=== PATIENT | female | born 1965 | race Caucasian/White ===

== ENCOUNTER 2020-04-30 10:44 | Day surgery (SDC) | payer BC ==
--- NOTE | 2020-04-30 11:11 | EDM.PDOC ---
ED HPI GENERAL MEDICAL PROBLEM - General Chief Complaint: Lower Extremity Injury/Pain Stated Complaint: INJURED LEG Time Seen by Provider: 04/30/20 10:56 Source of Information: Reports: Patient History Limitations: Reports: No Limitations - History of Present Illness INITIAL COMMENTS - FREE TEXT/NARRATIVE: 55 year old female, otherwise healthy, brought by ambulance after a injury from being trampled by a hog this morning. Pt c/o pain to right knee and R leg. Splint intact from ambulance upon arrival. Dilaudid was given while en route. No SOB or distress. . Onset: Today Onset Date: 04/30/20 Onset Time: 10:00 Duration: Hour(s):, Constant Location: Reports: Lower Extremity, Right Quality: Reports: Ache, Sharp, Stabbing, Throbbing Severity: Moderate Improves with: Reports: Immobilization (Currently in full leg splint from ambulance), Medication, Rest Worsens with: Reports: Movement Context: Reports: Trauma Associated Symptoms: Reports: No Other Symptoms Right Knee Pain Score (Numeric/FACES): 5 - Related Data Allergies Allergy/AdvReac Type Severity Reaction Status Date / Time No Known Allergies Allergy Verified 04/30/20 10:49 Home Meds: Home Meds NK [No Known Home Meds] 04/30/20 [History] Past Medical History HEENT History: Reports: Impaired Vision Musculoskeletal History: Reports: Fracture - Past Surgical History Musculoskeletal Surgical History: Reports: Other (See Below) Other Musculoskeletal Surgeries/Procedures:: ankle repair Social & Family History - Tobacco Use Smoking Status *Q: Never Smoker - Caffeine Use Caffeine Use: Reports: Coffee - Recreational Drug Use Recreational Drug Use: No - Living Situation & Occupation Living situation: Reports: with Spouse (Lives in single dwelling home with spouse) Review of Systems - Review of Systems Review Of Systems: See Below Constitutional: Reports: Weakness (Right leg injury ) Eyes: Reports: No Symptoms Ears: Reports: No Symptoms Nose: Reports: No Symptoms Mouth/Throat: Reports: No Symptoms Respiratory: Reports: No Symptoms Cardiovascular: Reports: No Symptoms GI/Abdominal: Reports: No Symptoms Genitourinary: Reports: No Symptoms Musculoskeletal: Reports: Leg Pain, Joint Pain, Joint Swelling, Other (R leg injury ) Skin: Reports: Other (Brusingto R leg from injury) Neurological: Reports: Difficulty Walking (R leg injury) Psychiatric: Reports: No Symptoms ED EXAM, GENERAL - Physical Exam Exam: See Below Exam Limited By: No Limitations General Appearance: Alert, WD/WN, No Apparent Distress, Moderate Distress Eye Exam: Bilateral Eye: Normal Inspection, PERRL Ears: Normal External Exam Ear Exam: Bilateral Ear: Auricle Normal Nose: Normal Inspection, Normal Mucosa, No Blood Throat/Mouth: Normal Inspection, Normal Lips, Normal Teeth, Normal Gums, Normal Voice, No Airway Compromise Head: Atraumatic, Normocephalic Neck: Normal Inspection, Supple, Non-Tender, Full Range of Motion Respiratory/Chest: No Respiratory Distress, Lungs Clear, Normal Breath Sounds, No Accessory Muscle Use, Chest Non-Tender Cardiovascular: Normal Peripheral Pulses, Regular Rate, Rhythm, No Edema, No Gallop, No JVD, No Murmur, No Rub Peripheral Pulses: 2+: Radial (L), Radial (R), Posterior Tibial (L), Posterior Tibial (R), Dorsalis Pedis (L), Dorsalis Pedis (R) GI/Abdominal: Normal Bowel Sounds, Soft, Non-Tender, No Distention, Pelvis Stable (Female) Exam: Deferred Rectal (Female) Exam: Deferred Back Exam: Normal Inspection, Full Range of Motion Extremities: Normal Capillary Refill, Joint Swelling, Limited Range of Motion (R knee/leg ) Neurological: Alert, Oriented, CN II-XII Intact, Normal Cognition, Abnormal Gait (R leg/knee injury) Skin Exam: Warm, Dry, Normal Color, No Rash, Other (scant abrasions to R leg/knee from injury) Lymphatic: No Adenopathy Course - Vital Signs Last Recorded V/S: Last Vital Signs Temp 36.3 C 04/30/20 10:45 Pulse 65 04/30/20 11:35 Resp 18 04/30/20 11:35 BP 146/79 H 04/30/20 11:35 Pulse Ox 98 04/30/20 11:35 - Orders/Labs/Meds Orders: Active Orders 24 hr Category Date Time Status EKG Documentation Completion [RC] ASDIRECTED Care 04/30/20 12:58 Active Verify Patient Consent Obtain [RC] ASDIRECTED Care 04/30/20 13:08 Active Chest 2V [CR] Stat Exams 04/30/20 12:56 Taken Fluoro Up To 1Hr [CR] Routine Exams 04/30/20 13:30 Ordered UA W/MICROSCOPIC [URIN] Urgent Lab 04/30/20 12:56 Ordered ceFAZolin [Ancef] 2 gm Med 04/30/20 13:15 Active Premix Bag 1 bag IV ONETIME EKG 12 Lead [EK] Urgent Ther 04/30/20 12:57 Ordered Medication Orders Cefazolin Sodium/Dextrose 2 gm (/ Premix) 50 mls @ 100 mls/hr IV ONETIME ONE Stop: 04/30/20 13:44 Labs: Laboratory Tests 04/30/20 04/30/20 04/30/20 Range/Units 13:02 13:02 13:02 WBC 9.9 (4.5-11.0) K/uL RBC 4.79 (3.30-5.50) M/uL Hgb 14.2 (12.0-15.0) g/dL Hct 42.0 (36.0-48.0) % MCV 88 (80-98) fL MCH 30 (27-31) pg MCHC 34 (32-36) % Plt Count 207 (150-400) K/uL PT 10.2 (9.5-12.0) sec INR 0.94 (0.80-1.20) Sodium 139 L (140-148) mmol/L Potassium 4.0 (3.6-5.2) mmol/L Chloride 104 (100-108) mmol/L Carbon Dioxide 28 (21-32) mmol/L Anion Gap 11.0 (5.0-14.0) mmol/L BUN 8 (7-18) mg/dL Creatinine 0.8 (0.6-1.0) mg/dL Est Cr Clr Drug Dosing 79.08 mL/min Estimated GFR (MDRD) > 60 (>60) Glucose 272 H (74-106) mg/dL Calcium 8.2 L (8.5-10.1) mg/dL Total Bilirubin 0.7 (0.2-1.0) mg/dL AST 28 (15-37) U/L ALT 46 (12-78) U/L Alkaline Phosphatase 99 (46-116) U/L Total Protein 7.1 (6.4-8.2) g/dL Albumin 3.4 (3.4-5.0) g/dL Globulin 3.7 H (2.3-3.5) g/dL Albumin/Globulin Ratio 0.9 L (1.2-2.2) Meds: Medications Generic Name Dose Route Start Last Admin Trade Name Freq PRN Reason Stop Dose Admin Cefazolin Sodium/Dextrose 2 gm 50 mls @ 100 mls/hr 04/30/20 13:15 / Premix IV 04/30/20 13:44 ONETIME ONE Discontinued Medications Generic Name Dose Route Start Last Admin Trade Name Freq PRN Reason Stop Dose Admin Bupivacaine HCl Confirm 04/30/20 13:31 Marcaine 0.5% Administered 04/30/20 13:32 Dose 30 ml .ROUTE .STK-MED ONE Dexamethasone Confirm 04/30/20 13:33 Dexamethasone Administered 04/30/20 13:34 Dose 4 mg .ROUTE .STK-MED ONE Fentanyl Confirm 04/30/20 13:33 Sublimaze Administered 04/30/20 13:34 Dose 250 mcg .ROUTE .STK-MED ONE Glycopyrrolate Confirm 04/30/20 13:33 Robinul Administered 04/30/20 13:34 Dose 1 mg .ROUTE .STK-MED ONE Neostigmine Methylsulfate Confirm 04/30/20 13:33 Neostigmine Administered 04/30/20 13:34 Dose 5 mg .ROUTE .STK-MED ONE Ondansetron HCl Confirm 04/30/20 13:33 Zofran Administered 04/30/20 13:34 Dose 4 mg .ROUTE .STK-MED ONE Propofol Confirm 04/30/20 13:33 Diprivan 20 Ml Administered 04/30/20 13:34 Dose 200 mg .ROUTE .STK-MED ONE Rocuronium Poth Confirm 04/30/20 13:33 Zemuron Administered 04/30/20 13:34 Dose 50 mg .ROUTE .STK-MED ONE Succinylcholine Chloride Confirm 04/30/20 13:33 Quelicin Administered 04/30/20 13:34 Dose 200 mg .ROUTE .STK-MED ONE - Re-Assessments/Exams Free Text/Narrative Re-Assessment/Exam: 04/30/20 11:16 Exam: See flow sheet Xray: r knee currently pain is under control. Will monitor for pain control while waiting for imaging 04/30/20 11:35 Imaging complete. Proximal tib/fib fracture. Dr Zelaya called. In OR and will call once able. 04/30/20 12:58 Dr Zelaya in ERE to view imaging. Will do surgical repair today. Labs and diagnostics ordered. 04/30/20 12:58 Dr Zelaya in to talk with pt 04/30/20 13:34 Pt will be admitted M/S room for surgical repair of fracture Departure - Departure Time of Disposition: 13:32 Disposition: Admitted As Inpatient 68 Condition: Good Clinical Impression: Closed fracture of tibia AND fibula - Discharge Information *PRESCRIPTION DRUG MONITORING PROGRAM REVIEWED*: Not Applicable *COPY OF PRESCRIPTION DRUG MONITORING REPORT IN PATIENT TEX: Not Applicable Sepsis Event Note (ED) - Evaluation Sepsis Screening Result: No Definite Risk - Focused Exam Vital Signs: Vital Signs Temp Pulse Resp BP Pulse Ox 04/30/20 11:35 65 18 146/79 H 98 04/30/20 10:45 36.3 C 71 14 158/80 H 93 L
--- NOTE | 2020-04-30 12:35 | CR ---
Knee 3V Rt CLINICAL HISTORY: Trauma FINDINGS: Patient has a comminuted impacted fracture of the proximal tibia with depression of the lateral tibial plateau. There is slight displacement. There is a fracture of the proximal fibula. Patella appears intact. There is some periarticular spurring in the lateral femoral condyle. IMPRESSION: Comminuted impaction fracture of the proximal tibia with depression of the lateral tibial plateau Fracture of the proximal fibula
[2020-04-30] MEDS ORDERED: ceFAZolin 2 GM in Premix Bag 1 BAG IV ONE (13:15)
[2020-04-30] MEDS ORDERED: Bupivacaine 0.5% 30 ML SDV ONE (13:31)
[2020-04-30] MEDS ORDERED: Propofol 200 MG/20 ML SDV ONE (13:33)
[2020-04-30] MEDS ORDERED: Ondansetron 4 MG/2 ML SDV ONE (13:33)
[2020-04-30] MEDS ORDERED: Succinylcholine 200 MG/10 ML MDV ONE (13:33)
[2020-04-30] MEDS ORDERED: Rocuronium 50 MG/5 ML Vial ONE (13:33)
[2020-04-30] MEDS ORDERED: Glycopyrrolate 0.2 MG/ML 5 ML MDV ONE (13:33)
[2020-04-30] MEDS ORDERED: Neostigmine Methylsulfate 1 MG/ML 5 ML Syringe ONE (13:33)
[2020-04-30] MEDS ORDERED: fentaNYL 250 MCG/5 ML SDV ONE ×2 (13:33→15:12)
[2020-04-30] MEDS ORDERED: Dexamethasone 4 MG/ML SDV ONE (13:33)
--- NOTE | 2020-04-30 14:11 | CR ---
CHEST: 2 view CLINICAL HISTORY:Trauma COMPARISON:None FINDINGS: The heart is enlarged. It is somewhat exaggerated by the AP lordotic technique. The pulmonary vascularity and hilar structures are normal. No infiltrate effusion or pneumothorax is seen. IMPRESSION: No acute cardiopulmonary process. Cardiomegaly
[2020-04-30] MEDS ORDERED: Lactated Ringers 1,000 ML ONE (15:14)
[2020-04-30] MEDS ORDERED: Morphine 2 MG/ML Syringe IVPUSH PRN (15:53)
[2020-04-30] MEDS ORDERED: Magnesium Hydroxide 400 MG/5 ML Susp 30 ML Cup PO PRN (15:53)
[2020-04-30] MEDS ORDERED: Acetaminophen/HYDROcodone 325-5 MG Tab PO PRN (15:53)
[2020-04-30] MEDS ORDERED: Ondansetron 4 MG/2 ML SDV IVPUSH PRN (15:53)
[2020-04-30] MEDS ORDERED: Acetaminophen 325 MG Tab PO PRN (15:53)
[2020-04-30] MEDS: Ketorolac 30 MG/ML SDV IVPUSH SCH (17:09)
[2020-04-30] MEDS: Acetaminophen/oxyCODONE 325-5 MG Tab PO PRN (21:01)
[2020-04-30] MEDS: Docusate Sodium 100 MG Cap PO SCH (21:02)
[2020-04-30] MEDS: ceFAZolin 1 GM in Premix Bag 1 BAG IV SCH (21:07)
[2020-04-30] MEDS: Sodium Chloride 0.9% 1,000 ML IV SCH (21:14)
[2020-05-01] MEDS: Ketorolac 30 MG/ML SDV IVPUSH SCH ×2 (00:56→10:29)
[2020-05-01] MEDS: Sodium Chloride 0.9% 1,000 ML IV SCH (04:39)
[2020-05-01] MEDS: ceFAZolin 1 GM in Premix Bag 1 BAG IV SCH (04:45)
[2020-05-01] MEDS: Acetaminophen/oxyCODONE 325-5 MG Tab PO PRN ×2 (11:05→16:34)
[2020-05-01] MEDS: Docusate Sodium 100 MG Cap PO SCH (11:06)
--- NOTE | 2020-05-01 16:20 | PCM.DCSUM1 ---
Discharge Summary - Hospital Course HPI Initial Comments: 55 year old female presented to the ED with right leg injury after being knocked down by a hog. Pain with attempted weight bearing. Evaluation in the ED revealed a bicondylar tibial plateau fracture. She was admitted for ORIF. No other injuries. Diagnosis: Stroke: No Modified Pierre Scale: No Symptoms at All Modified Pierre Scale Score: 0 - Discharge Data Discharge Date: 05/01/20 Discharge Disposition: Home, Self-Care 01 Condition: Good - Referral to Home Health Date of Face to Face Encounter: 05/01/20 Primary Care Physician: PCP None - Discharge Diagnosis/Problem(s) (1) Tibial plateau fracture, right SNOMED Code(s): 427016428, [id number] ICD Code: S82.141A - DISPLACED BICONDYLAR FRACTURE OF RIGHT TIBIA, INIT Status: Acute Current Visit: Yes Qualifiers: Encounter type: initial encounter Fracture type: closed Qualified Code(s): S82.141A - Displaced bicondylar fracture of right tibia, initial encounter for closed fracture (2) Status post open reduction and internal fixation (ORIF) of fracture SNOMED Code(s): 044970428 ICD Code: Z98.890 - OTHER SPECIFIED POSTPROCEDURAL STATES; Z87.81 - PERSONAL HISTORY OF (HEALED) TRAUMATIC FRACTURE Status: Acute Current Visit: Yes - Patient Summary/Data Operative Procedure(s) Performed: ORIF right tibial plateau Consults: Consultations 04/30/20 15:53 Consult to Case Management/Supervisor Fitting [CONS] Routine Comment: Physician Instructions: Service(s) to be Consulted: Case Management Reason for Consult: Plan for Discharge OT Evaluation and Treatment [CONS] Routine Please Evaluate and Treat. OT Reason for Consult: ADL's This query below is only for informational purposes and is not editable. PT Evaluation and Treatment [CONS] Routine Please Evaluate and Treat. PT Reason for Consult: Post op Ortho Surgery Special Instructions: TTWB on right in brace This query below is only for informational purposes and is not editable. PT Evaluation and Treatment [CONS] Routine Please Evaluate and Treat. PT Reason for Consult: Post op Ortho Surgery Knee Pending Discharge: Yes, 1- 2 days Special Instructions: Schedule first outpatient PT appointment in 3-5 day post discharge. This query below is only for informational purposes and is not editable. Hospital Course: Admitted from the ED and underwent ORIF of right tibial plateau. Tolerated surgery without complication. Did very well post op. Pain was managed with po medications and she was able to ambulate independently with a walker. Dressing was changed prior to discharge and arrangements made for outpatient PT. Follow up in one week. - Patient Instructions Diet: Usual Diet as Tolerated Activity: Partial Weight Bearing Activity, Other: Knee brace on when up Driving: Do Not Drive Showering/Bathing: Shower in AM Wound/Incision Care: Keep Operative Site/Wound Site Clean and Dry, Change Dressing Daily Notify Provider of: Fever, Increased Pain, Swelling and Redness, Drainage, Nausea and/or Vomiting - Discharge Plan *PRESCRIPTION DRUG MONITORING PROGRAM REVIEWED*: Not Applicable *COPY OF PRESCRIPTION DRUG MONITORING REPORT IN PATIENT TEX: Not Applicable Home Medications: Home Meds oxyCODONE HCl/Acetaminophen [Percocet 5-325 mg Tablet] 1 each PO Q4HR PRN #24 tablet 05/01/20 [Rx] Oxygen Therapy Mode: Room Air Forms: ED Department Discharge Referrals: Viki Johnston, PT [Physical Therapist] - 05/07/20 1:00 pm (For Outpatient Therapy At [facility]) Kartik Zelaya MD [Physician] - 05/13/20 9:45 am (Check in at ER desk) - Discharge Summary/Plan Comment DC Time >30 min.: Yes - General Info Functional Status: Reports: Pain Controlled, Tolerating Diet, Ambulating, Urinating - Review of Systems General: Reports: No Symptoms HEENT: Reports: No Symptoms Pulmonary: Reports: No Symptoms Cardiovascular: Reports: No Symptoms Gastrointestinal: Reports: No Symptoms Genitourinary: Reports: No Symptoms Musculoskeletal: Reports: Leg Pain Skin: Reports: No Symptoms Neurological: Reports: No Symptoms Psychiatric: Reports: No Symptoms - Patient Data Vitals - Most Recent: Last Vital Signs Temp 36.2 C 05/01/20 11:37 Pulse 103 H 05/01/20 11:37 Resp 16 05/01/20 11:37 BP 123/51 L 05/01/20 11:37 Pulse Ox 92 L 05/01/20 11:37 Weight - Most Recent: 119.295 kg I&O - Last 24 hours: Intake & Output 05/01/20 05/01/20 05/01/20 06:59 14:59 22:59 Intake Total 1810 Output Total 800 Balance 1010 Med Orders - Current: Current Medications Acetaminophen (Tylenol) 650 mg PO Q4H PRN PRN Reason: Pain/Fever Hydrocodone Bitart/Acetaminophen ([place]ley 325-5 Mg) 2 tab PO Q4H PRN PRN Reason: Pain (mild 1-3) Docusate Sodium (Colace) 100 mg PO BID [facility] Last Admin: 05/01/20 11:06 Dose: 100 mg Documented by: Sodium Chloride (Normal Saline) 1,000 mls @ 125 mls/hr IV ASDIRECTED [facility] Last Admin: 05/01/20 04:39 Dose: 125 mls/hr Documented by: Ketorolac Tromethamine (Toradol) 30 mg IVPUSH Q8H [facility] Stop: 05/02/20 09:01 Last Admin: 05/01/20 10:29 Dose: Not Given Documented by: Magnesium Hydroxide (Milk Of Magnesia) 30 ml PO BID PRN PRN Reason: Constipation Morphine Sulfate (Morphine) 2 mg IVPUSH Q1H PRN PRN Reason: Breakthrough Pain Ondansetron HCl (Zofran) 4 mg IVPUSH Q6H PRN PRN Reason: Nausea/Vomiting Oxycodone/Acetaminophen (Percocet 325-5 Mg) 1 - 2 tab PO Q4H PRN PRN Reason: Pain (moderate 4-6) Last Admin: 05/01/20 11:05 Dose: 1 tab Documented by: Discontinued Medications Bupivacaine HCl (Marcaine 0.5%) Confirm Administered Dose 30 ml .ROUTE .STK-MED ONE Stop: 04/30/20 13:32 Dexamethasone (Dexamethasone) Confirm Administered Dose 4 mg .ROUTE .STK-MED ONE Stop: 04/30/20 13:34 Fentanyl (Sublimaze) Confirm Administered Dose 250 mcg .ROUTE .STK-MED ONE Stop: 04/30/20 13:34 Fentanyl (Sublimaze) Confirm Administered Dose 250 mcg .ROUTE .STK-MED ONE Stop: 04/30/20 15:13 Glycopyrrolate (Robinul) Confirm Administered Dose 1 mg .ROUTE .STK-MED ONE Stop: 04/30/20 13:34 Cefazolin Sodium/Dextrose 2 gm (/ Premix) 50 mls @ 100 mls/hr IV ONETIME ONE Stop: 04/30/20 13:44 Last Admin: 04/30/20 13:40 Dose: 100 mls/hr Documented by: Lactated Ringer's (Ringers, Lactated) Confirm Administered Dose 1,000 mls @ as directed .ROUTE .STK-MED ONE Stop: 04/30/20 15:15 Cefazolin Sodium/Dextrose 1 gm (/ Premix) 50 mls @ 100 mls/hr IV Q8H [facility] Stop: 05/01/20 05:29 Last Admin: 05/01/20 04:45 Dose: 100 mls/hr Documented by: Neostigmine Methylsulfate (Neostigmine) Confirm Administered Dose 5 mg .ROUTE .STK-MED ONE Stop: 04/30/20 13:34 Ondansetron HCl (Zofran) Confirm Administered Dose 4 mg .ROUTE .STK-MED ONE Stop: 04/30/20 13:34 Propofol (Diprivan 20 Ml) Confirm Administered Dose 200 mg .ROUTE .STK-MED ONE Stop: 04/30/20 13:34 Rocuronium [place] (Zemuron) Confirm Administered Dose 50 mg .ROUTE .STK-MED ONE Stop: 04/30/20 13:34 Succinylcholine Chloride (Quelicin) Confirm Administered Dose 200 mg .ROUTE .STK-MED ONE Stop: 04/30/20 13:34 - Exam General: Reports: Alert, Oriented HEENT: Reports: Pupils Equal, Pupils Reactive, EOMI, Mucous Membr. Moist/Porter Neck: Reports: Supple Lungs: Reports: Clear to Auscultation, Normal Respiratory Effort Cardiovascular: Reports: Regular Rate, Regular Rhythm GI/Abdominal Exam: Normal Bowel Sounds, Soft, Non-Tender, No Distention (Female) Exam: Deferred Rectal (Female) Exam: Deferred Back Exam: Reports: Normal Inspection Extremities: Joint Swelling, Limited Range of Motion Skin: Reports: Warm, Dry Wound/Incisions: Reports: Other (mild bleed through on dressing) Neurological: Reports: No New Focal Deficit Psy/Mental Status: Reports: Alert, Normal Affect, Normal Mood
--- NOTE | 2020-05-02 19:40 | OR ---
DATE OF PROCEDURE: 04/30/2020 SURGEON: Kartik Zelaya MD PREOPERATIVE DIAGNOSIS: Right tibial plateau fracture, bicondylar. POSTOPERATIVE DIAGNOSIS: Mildly comminuted and displaced bicondylar right tibial plateau fracture. PROCEDURE: Open reduction and internal fixation of right tibial plateau. INDICATIONS: Minerva is a 55-year-old female who sustained an injury to her right leg on the day of admission when she was knocked over by a hog on her property. She was evaluated in the emergency room and found to have a tibial plateau fracture with mild comminution and slight depression of the lateral plateau and joint surface with fracture extending over into the medial metaphysis. She is admitted to the emergency room and taken to the operating room for open reduction and internal fixation. Risks, benefits, potential complications of procedure were discussed. PROCEDURE IN DETAIL: After adequate anesthesia was obtained, patient placed supine with a tourniquet about the right upper thigh, right leg was prepped and draped in a sterile fashion. Leg was exsanguinated and tourniquet inflated to 300 mmHg pressure. A longitudinal incision was made over the anterior aspect of the knee, carried down through the subcutaneous tissues and extended for a distance below the tibial tubercle. An incision was made in the anterior compartment fascia and the musculature was then elevated off the tibia proximally. Capsule was divided in the lateral parapatellar region and the fracture hematoma was evacuated. Fracture line was identified just lateral to the tibial tubercle. Laurel elevator was placed into the fracture site and used to elevate the articular surface. Crushed cancellous bone graft was placed into the defect. A large tenaculum clamp was then used to compress and reduce the fracture site. It was evaluated using fluoroscopy. A lateral L-shaped Synthes large fragment plate was then selected. This was secured distally with cortical screws compressing the plate against the lateral condyle and buttressing the fracture. Additional fixation was then obtained with a 6.5 screw with a washer just posterior to the L extension of the plate compressing the posterior fragment. Distal fixation was then obtained with locking screws through the superior aspect of the plate. The position of all screws was confirmed using fluoroscopy. The wound was then irrigated. The anterior fascia was closed with 0 Vicryl in a running fashion. The capsule was closed with 0 Vicryl in interrupted fashion. The skin was then closed with 2-0 Vicryl and a running 3-0 Monocryl. Steri-Strips were applied. Sterile dressing was then placed and legs secured in a T-scope brace and locked in extension. The patient tolerated procedure very well. There were no complications, taken from the operating room in stable condition. Kartik Zelaya MD /[id number]
== END 2020-05-01 16:45 | disposition home or self-care (01) ==
LOC: JP.ED 10:44 → JP.SDS 13:18 → JP.MS 15:53 → JP.SDS 05-01 16:45
PROVIDERS: ATTEND Specialist
DX: S82.141A Displaced bicondylar fracture of right tibia, initial encounter for closed fracture (principal); E66.9 Obesity, unspecified; Z68.41 Body mass index [BMI] 40.0-44.9, adult; W55.42XA Struck by pig, initial encounter; Y93.9 Activity, unspecified; Y92.89 Other specified places as the place of occurrence of the external cause
CPT/HCPCS: 27536; 36415; 71046; 73562; 76000; 80053; 85027; 85610; 93005; 96365; 97116; 97161; 97530; 99285; A9270; C1713; J0330; J0690; J1100; J1885; J2405; J2704; J2710; J3010; J3490; J7030; J7120; C1776